=== PATIENT | male | born 1930 | race Caucasian/White ===

== ENCOUNTER 2017-01-14 08:36 | Inpatient (IN) | payer OTHER ==
[~2017-01-14] VITALS: Ht 180.3 cm; Wt 71.5 kg
[~2017-01-14 08:36] MED LIST: /ALEN70TA; /WARF25TA; /WARF5TA; ALDA25TA2; ALDA50TA2; ATEN50TA2; CALA240T; CALAN; CALC500T49; CIPR500T19; COLA100C2; COUMADIN; FURO40TA2; GLAUCOMA MED; LASI20TA; LASI40TA; LIPI10TA; METO25TA2; MIRALEX; MULTIVIT; NITR0.4S; OXYC10TA97; PERC5TAB8; TENO50TA; THERGRAN; TRAVATAN Z; VITAMIN D
--- NOTE | 2017-01-14 09:52 | REP ---
CT Head without contrast HISTORY: Fall COMPARISON: 11/07/2007 Areas of decreased attenuation are present in the periventricular white matter. This represents small vessel ischemic disease. There is no intraparenchymal hemorrhage, acute infarct, mass or midline shift. The ventricular system and cortical sulci are dilated consistent with moderate volume loss. There is no extra cerebral collection. There is no fracture. The visualized sinuses are clear. IMPRESSION: 1. Small vessel ischemic disease. 2. Moderate volume loss. Signed by Ernie Henriquez MD 01/14/2017 09:44 A
--- NOTE | 2017-01-14 09:54 | REP ---
Chest one-view HISTORY: Chest pain Comparison: 08/13/2012 A minimal increase in interstitial markings is present in the lungs consistent with chronic interstitial fibrosis. The cardiac silhouette is enlarged. The pulmonary vasculature is normal in appearance. A cardiac pacemaker is present. Impression: No acute disease. Signed by Ernie Henriquez MD 01/14/2017 09:45 A
[2017-01-14 10:02] LABS: BASO % 0.1 % (0.0-1.0); EOS % 0.3 % (0.0-3.0); LARGE UNSTAINED CELL # 0.1 K/mm3 (0.0-0.4); LARGE UNSTAINED CELL % 0.5 % (0.0-4.0); LYMPH # 0.6 K/mm3 (1.5-4.5); LYMPH % 4.5 % (24.0-44.0); MEAN CORPUSCULAR HEMOGLOBIN 32.6 pg (27.0-33.0); MEAN CORPUSCULAR HGB CONC 33.5 g/dl (32.0-36.5); MEAN CORPUSCULAR VOLUME 97.5 fl (80.0-96.0); MONO # 0.5 K/mm3 (0.0-0.8); MONO % 3.8 % (0.0-5.0); NEUTROPHILS # 11.4 K/mm3 (1.8-7.7); NEUTROPHILS % 90.9 % (36.0-66.0); PLATELET COUNT, AUTOMATED 141 k/mm3 (150-450); RED CELL DISTRIBUTION WIDTH 13.4 % (11.5-14.5); WHITE BLOOD COUNT 12.6 K/mm3 (4.0-10.0)
[2017-01-14] MEDS: NS 1,000 ML IV SCH ×2 (10:04→22:20)
[2017-01-14 10:05] LABS: ANION GAP 7 MEQ/L (8-16); BLOOD UREA NITROGEN 22 MG/DL (7-18); CALCIUM LEVEL 8.6 MG/DL (8.8-10.2); CARBON DIOXIDE LEVEL 27 MEQ/L (21-32); CHLORIDE LEVEL 107 MEQ/L (98-107); CREATININE FOR GFR 0.87 MG/DL (0.70-1.30); GLOMERULAR FILTRATION RATE > 60.0 (>35); GLUCOSE, FASTING 119 MG/DL (83-110); POTASSIUM SERUM 3.9 MEQ/L (3.5-5.1); SODIUM LEVEL 141 MEQ/L (136-145)
[2017-01-14 10:06] LABS: INR 1.22
[2017-01-14] MEDS ORDERED: LATA5OPD OU (10:32)
[2017-01-14] MEDS ORDERED: FLOM5CAP PO (10:32)
[2017-01-14] MEDS ORDERED: METO-207 PO (10:32)
[2017-01-14] MEDS ORDERED: PARO10TA84 PO (10:32)
[2017-01-14] MEDS ORDERED: OMEP20CA3 PO (10:32)
[2017-01-14] MEDS ORDERED: VESI5TAB PO (10:32)
[2017-01-14] MEDS ORDERED: VITA-122 PO (10:32)
[2017-01-14] MEDS ORDERED: CEPH500T PO (10:32)
[2017-01-14] MEDS ORDERED: MYRB25TA PO (10:32)
[2017-01-14] MEDS ORDERED: ELIQ2.5T PO (10:32)
[2017-01-14] MEDS ORDERED: SENN8.6T10 PO (10:32)
[2017-01-14] MEDS ORDERED: URIB118C PO (10:32)
[2017-01-14] MEDS ORDERED: ATOR1TAB19 PO (10:32)
[2017-01-14 10:33] LABS: MICROSCOPIC INDICATED? MAN YES (NO)
[2017-01-14 10:45] LABS: RBC, URINE TNTC /hpf (0-3)
[2017-01-14 10:47] LABS: BACTERIA, URINE SMALL AMOUNT; HYALINE CAST, URINE NONE SEEN /lpf (0-1); MICROSCOPIC EXAM PERFORMED; SQUAMOUS EPITHELIAL CELL URINE SMALL AMOUNT /hpf (SMALL AMT); TRANSITIONAL EPI CELLS, URINE SMALL AMOUNT /hpf
[2017-01-14 15:33] LABS: MAGNESIUM LEVEL 1.5 MG/DL (1.8-2.4)
--- NOTE | 2017-01-14 16:04 | HPEPDOC ---
General Date of Admission 01/14/17 3:52PM Chief Complaint The patient is a 86-year-old male admitted with a reason for visit of weakness; fall injury. Source: Patient, Caregiver Exam Limitations: Hard of hearing Timing/Duration: 4-6 hours Severity: Moderate, Severe Associated Symptoms: Weakness, Mechanical fall History of Present Illness 86 yo male from home, brought in by child care education coordinator after being found on the floor at home. Patient states early this morning around 6am he went to use the toilet , was sitting on the toilet, and slid off due to weakness, landing on the floor. He was unable to get up because of weakness. Roughly one hour later his caregiver arrived and brought him to the hospital. He denies any LOC, SOB, CP, N /V/D, changes in vision, STOVER or seizure activity. Four days ago he underwent bilateral ureteral stent placement for nephrolithiasis. Both the patient and caregiver state that s/p stent placement he has been having some difficulty with walking, weakness and decreased appetite. Patient states he has been intentionally avoiding liquids because of his incontinence. He also admits to dysuria for the last several days. He is scheduled for lithiotripsy on January 27. He was evaluated in [place] for dysphagia, and was recommended a soft food diet. He also admits to not taking his medications correctly. It appears his coumadin was recently switched to Eliquis, which was held prior to his stent placement. Home Medications Scheduled (Paroxetine) 10 Mg Tab, 10 MG PO DAILY, (Reported) (Uribel 118 mg) 1 Cap Cap, 1 CAP PO Q6H, (Reported) Apixaban Base (Eliquis) 2.5 Mg Tab, 2.5 MG PO BID, (Reported) STOPPED TAKING 01/06 DUE TO A PROCEDURE- HAS A RESTART DATE BUT IS UNSURE OF DATE. Atorvastatin Calcium (Atorvastatin Calcium) 10 Mg Tab, 5 MG PO DAILY, (Reported) Cephalexin Monohydrate (Cephalexin) 500 Mg Tab, 500 MG PO Q12H, (Reported) STOPS 01/15 Cholecalciferol (Vitamin D3) 1,000 Unit Tab, 1,000 UNIT PO DAILY, (Reported) Latanoprost (Latanoprost) 50 Drop/2.5 Ml Soln, 1 DROP OU QHS, (Reported) Metoprolol Succinate (Metoprolol Succinate ER) 50 Mg Tab, 50 MG PO DAILY, ( Reported) Mirabegron Base (Myrbetriq) 25 Mg Tab, 25 MG PO QHS, (Reported) Omeprazole (Omeprazole) 20 Mg Cap, 20 MG PO BID, (Reported) Senna (Senna Lax) 8.6 Mg Tab, 1 TAB PO DAILY, (Reported) Solifenacin Succinate (Vesicare) 5 Mg Tab, 5 MG PO DAILY, (Reported) Tamsulosin Hydrochloride (Flomax) 0.4 Mg Cap, 0.4 MG PO QHS, (Reported) Allergies Coded Allergies: Sulfa Drugs (Verified Allergy, Intermediate, SKIN PEELS, 11/20/12) Sulfa Drugs Cross Reactors (Verified Allergy, Intermediate, SKIN PEELS, 11/20/12) Past Medical History Medical History As per caregiver and patient: 1. Afib 2. CAD 3. Aortic valve repair 4. PPM 5. CHF 7. Dysphagia Social History * Smoker: other Review of Symptoms Constitutional: Reports: Weakness, Fatigue, Denies: Chills, Fever, Malaise, Night Sweats, Weight Loss, Lethargy, Other Eyes: Denies: Pain, Vision change, Conjunctivae inflammation, Eyelid inflammation, Redness, Other ENT: Denies: Head Aches, Ear Pain, Dysphagia, Sinus Congestion, Post Nasal Drip , Sore Throat, Epistaxis, Other Symptoms Skin: Denies: Rash, Lesions, Jaundice, Bruising, Itching, Dry, Breakdown, Nail Changes, Other Pulmonary: Denies: Dyspnea, Cough, Pleuritic Chest Pain, Other Symptoms Cardiovascular: Denies: Chest Pain, Palpitations, Orthopnea, Paroxysmal Noc. Dyspnea, Edema, Lt Headedness, Other Symptoms Gastrointestinal: Denies: Nausea, Vomiting, Abdominal Pain, Diarrhea, Constipation, Melena, Hematochezia, Other Symptoms Genitourinary: Reports: Dysuria, Incontinence Musculoskeletal: Reports: Other Symptoms (right flank pain) Neurological: Reports: Weakness, Denies: Numbness, Incoordination, Change in speech, Confusion, Seizures, Other Symptoms Physical Examination General Exam: Positive: Alert, Cooperative, No Acute Distress Eye Exam: Negative: PERRLA, Conjunctiva & lids normal, EOMI, Sclera icteric, Ptosis, Other Eye Symptoms ENT Exam: Positive: Other ENT (poor dentition), Negative: Atraumatic, Mucous membr. moist/pink, Pharynx Normal, Tongue Midline, Pharyngeal Edema, Nares Patent, Tympanic Membranes Normal, Ext Auditory Canal Nml, Pinna Normal Neck Exam: Negative: Supple, JVD, thyromegaly, +2 carotid pulse wo bruit, Lymphadenopathy, Other Chest Exam: Positive: Clear to auscultation, Normal air movement, Negative: Rales, Rhonchi, Wheezing, Diminished, Other Heart Exam: Positive: Rate Normal, Regular Rhythm, Murmurs (systolic murmur) Telemetry: Positive: No significant arrhythmia Abdomen Exam: Positive: Normal bowel sounds, Soft, Tenderness Extremity Exam: Negative: Edema Neuro Exam: Positive: Strength at 5/5 X4 ext Psych Exam: Positive: Oriented x 3 Vital Signs Vital Signs Date Time Temp Pulse Resp B/P (MAP) Pulse Ox O2 Delivery O2 Flow Rate FiO2 01/14/17 15:45 86 93 01/14/17 15:29 182/85 (117) 01/14/17 14:30 18 Nasal Cannula 20.0 01/14/17 08:52 97.3 Laboratory Data Labs 24H Laboratory Tests 2 01/14/17 09:28: White Blood Count 12.6H, Red Blood Count 3.79L, Hemoglobin 12.4L, Hematocrit 37.0L, Mean Corpuscular Volume 97.5H, Mean Corpuscular Hemoglobin 32.6, Mean Corpuscular Hemoglobin Concent 33.5, Red Cell Distribution Width 13.4, Platelet Count 141L, Neutrophils (%) (Auto) 90.9H, Lymphocytes (%) (Auto) 4.5L, Monocytes (%) (Auto) 3.8, Eosinophils (%) (Auto) 0.3, Basophils (%) (Auto) 0.1, Neutrophils # (Auto) 11.4H, Lymphocytes # (Auto) 0.6L, Monocytes # (Auto) 0.5, Eosinophils # (Auto) 0.0, Basophils # (Auto) 0.0, Large Unclassified Cells % 0.5 , Large Unclassified Cells # 0.1, Prothrombin Time 15.5H, Prothromb Time International Ratio 1.22, Anion Gap 7L, Glomerular Filtration Rate > 60.0, Lactic Acid Level 1.3, Blood Urea Nitrogen 22H, Creatinine 0.87, Sodium Level 141, Potassium Level 3.9, Chloride Level 107, Carbon Dioxide Level 27, Calcium Level 8.6L, Total Creatine Kinase 106, Magnesium Level 1.5L, Creatine Kinase MB 1.3, Creatine Kinase MB Relative Index 1.22, Troponin I < 0.02 01/14/17 10:23: Bedside Urine Color (LAB) GREENH, Bedside Urine Appearance (LAB) CLOUDYH, Bedside Urine pH (LAB) 6.0, Bedside Urine Specific [place] (LAB 1.018, Bedside Urine Protein (LAB) 3+H, Bedside Urine Glucose (UA) NEGATIVE, Bedside Urine Ketones (LAB) 1+H, Bedside Urine Blood POSITIVEH, Bedside Urine Nitrite (LAB) OBSCUREDH, Bedside Urine Bilirubin (LAB) OBSCUREDH, Bedside Urine Urobilinogen ( LAB) OBSCUREDH, Bedside Urine Leukocyte Esterase (L POSITIVEH, Urine WBC 10-15H , Urine RBC TNTCH, Urine Squamous Epithelial Cells SMALL AMOUNT, Urine Transitional Epithelial Cells SMALL AMOUNTH, Urine Renal Epithelial Cells SMALL AMOUNTH, Urine Bacteria SMALL AMOUNTH, Urine Hyaline Casts NONE SEEN, Urine Mucus SMALL AMOUNTH, Urine Amorphous Sediment SMALL AMOUNTH, Urine Sediment Examination PERFORMED CBC/BMP Laboratory Tests 01/14/17 09:28 Red Blood Count 3.79 L, Mean Corpuscular Volume 97.5 H, Mean Corpuscular Hemoglobin 32.6, Mean Corpuscular Hemoglobin Concent 33.5, Red Cell Distribution Width 13.4, Neutrophils (%) (Auto) 90.9 H, Lymphocytes (%) (Auto) 4.5 L, Monocytes (%) (Auto) 3.8, Eosinophils (%) (Auto) 0.3, Basophils (%) (Auto ) 0.1, Neutrophils # (Auto) 11.4 H, Lymphocytes # (Auto) 0.6 L, Monocytes # ( Auto) 0.5, Eosinophils # (Auto) 0.0, Basophils # (Auto) 0.0, Calcium Level 8.6 L , Total Creatine Kinase 106 Microbiology Microbiology 01/14/17 Blood Culture, Received Pending 01/14/17 Blood Culture, Received Pending 01/14/17 Urine Culture, Received Pending Problems (1) Fall Status: Acute Response to Treatment: Progressing Discussed With: Patient, Other Discussed With: (caregiver) Problem Specific Plan: Monitor Clinically, Repeat Labs, Repeat Tests Problem Text: Does appear to be secondary to weakness. Patient denies any other associated symptoms. Will monitor on telemetry for possible arrhythmia, he did have a run of VT in the ER - magnesium found to be low which is being repleted. PT/OT evaluation. (2) UTI (urinary tract infection) Status: Acute Response to Treatment: Progressing Discussed With: Welfare Service Aide, Patient Problem Specific Plan: Monitor Clinically, Repeat Labs, Repeat Tests Problem Text: Patient does admit to dysuria. Discussed with urology, no intervention needed - +UA WNL s/p stent placement. Urine cultures pending - IV antibiotics for now. (3) Afib Status: Chronic Discussed With: Patient Problem Text: Discussed resuming anticoagulation with urology, advised that ac should be head 7-10 days before lithiotripsy scheduled for 01/27. Rate controlled and currently in sinus rhythm. BB with hold parameters given low blood pressures. (4) CAD (coronary artery disease) Status: Chronic Discussed With: Patient, Other Discussed With: (5) CHF (congestive heart failure) Status: Chronic Discussed With: Patient, Other Discussed With: Problem Specific Plan: Monitor Clinically (6) Aortic valve disease Status: Chronic Discussed With: Patient, Other Discussed With: Plan / VTE VTE Prophylaxis Ordered?: Yes (eliquis) Plan Diet: Continue Current Activity: Continue Current Therapy: PT, OT Pt and Family Services: Home Care Medications: Change to IV, Start Antibiotics Diagnostics: Repeat Labs in AM, Obtain Cultures Anticipated Discharge: Home, Home With Services MARIO PUGA MD Jan 14, 2017 16:04
[2017-01-14] MEDS: PARoxetine 10MG TABLET PO SCH (16:42)
[2017-01-14] MEDS: METOPROLOL SUCC (TopROL XL) 50MG **XL** TAB PO SCH (16:43)
[2017-01-14] MEDS: PERCOCET 5MG/325MG TAB PO PRN ×2 (16:43→20:31)
[2017-01-14] MEDS ORDERED: ANALGESIC BALM CRM 120 GM TOP ONE (17:00)
--- NOTE | 2017-01-14 18:15 | ECGEPIP ---
Stationary ECG Study [facility] - ED Test Date: 2017-01-14 Pat Name: XIOMY KRAUSE Department: Room: - Gender: M Fermenter: RN : 1930 Requested By: KIT BRAVO Order Number: [id number] Reading MD: Marry Kim Measurements Intervals [place] Rate: 80 P: [place]: 0 QRS: -1 QRSD: 113 T: -36 QT: 385 QTc: 446 Interpretive Statements ATRIAL FIBRILLATION MODERATE INTRAVENTRICULAR CONDUCTION DELAY VOLTAGE CRITERIA FOR LVH ST DEVIATION AND MODERATE T-WAVE ABNORMALITY, CONSIDER LATERAL ISCHEMIA NO PRIOR FOR COMPARISON Electronically Signed On 01-14-2017 18:15:20 EDT by Marry Kim
[2017-01-14] MEDS: cefTRIAXone SOD 1 GM in D5W MINI-BAG PLUS 50 ML IV SCH (18:25)
[2017-01-14] MEDS: URIBEL PO SCH ×2 (18:26→22:42)
[2017-01-14] MEDS ORDERED: MAG SULF 1GM/100ML (MAG RUN) 1 GM in APPROPRIATE DILUENT 1 EA IV ONE (19:00)
[2017-01-14 20:00] VITALS: PULSE 90
[2017-01-14] MEDS ORDERED: APIXABAN 2.5 MG TAB (ELIQUIS) PO SCH (21:00)
[2017-01-14 21:35] VITALS: BP 127/70
[2017-01-14] MEDS: TAMSULOSIN 0.4 MG CAP PO SCH (22:20)
[2017-01-14] MEDS: OMEPRAZOLE 20 MG CAP PO SCH (22:20)
[2017-01-14] MEDS: LATANOPROST 0.005% OPHTH SOLN 2.5 ML OU SCH (22:41)
[2017-01-15] VITALS: BP_SYST 300
[2017-01-15] MEDS: PERCOCET 5MG/325MG TAB PO PRN ×4 (00:40→22:37)
[2017-01-15 04:00] VITALS: BP 123/68
[2017-01-15] MEDS: URIBEL PO SCH ×4 (05:01→23:18)
[2017-01-15 05:18] LABS: BASO % 0.2 % (0.0-1.0); EOS # 0.3 K/mm3 (0.0-0.50); EOS % 2.9 % (0.0-3.0); LARGE UNSTAINED CELL # 0.1 K/mm3 (0.0-0.4); LARGE UNSTAINED CELL % 1.1 % (0.0-4.0); LYMPH # 0.8 K/mm3 (1.5-4.5); LYMPH % 7.2 % (24.0-44.0); MEAN CORPUSCULAR HEMOGLOBIN 34.3 pg (27.0-33.0); MEAN CORPUSCULAR HGB CONC 35.4 g/dl (32.0-36.5); MEAN CORPUSCULAR VOLUME 96.7 fl (80.0-96.0); MONO # 0.5 K/mm3 (0.0-0.8); MONO % 5.1 % (0.0-5.0); NEUTROPHILS # 7.9 K/mm3 (1.8-7.7); NEUTROPHILS % 83.4 % (36.0-66.0); PLATELET COUNT, AUTOMATED 120 k/mm3 (150-450); RED CELL DISTRIBUTION WIDTH 13.9 % (11.5-14.5); WHITE BLOOD COUNT 9.5 K/mm3 (4.0-10.0)
[2017-01-15 05:31] LABS: ANION GAP 6 MEQ/L (8-16); BLOOD UREA NITROGEN 19 MG/DL (7-18); CALCIUM LEVEL 8.1 MG/DL (8.8-10.2); CARBON DIOXIDE LEVEL 25 MEQ/L (21-32); CHLORIDE LEVEL 108 MEQ/L (98-107); CREATININE FOR GFR 0.69 MG/DL (0.70-1.30); GLOMERULAR FILTRATION RATE > 60.0 (>35); GLUCOSE, FASTING 138 MG/DL (83-110); MAGNESIUM LEVEL 1.7 MG/DL (1.8-2.4); POTASSIUM SERUM 3.7 MEQ/L (3.5-5.1); SODIUM LEVEL 139 MEQ/L (136-145)
[2017-01-15] MEDS ORDERED: MAG SULF 1GM/100ML (MAG RUN) 1 GM in APPROPRIATE DILUENT 1 EA IV ONE (07:00)
[2017-01-15 08:00] VITALS: BP 109/66; PULSE 85
--- NOTE | 2017-01-15 08:47 | REP ---
CT ABDOMEN AND PELVIS WITHOUT CONTRAST: HISTORY: Renal stents. COMPARISON: 03/27/2013 Calcifications are present in the gallbladder, consistent with cholelithiasis. The kidneys are irregular in contour, consistent with scarring. Bilateral ureteral stents are present. There is moderate dilatation of the renal collecting systems. The liver, pancreas, spleen, and adrenal glands are normal in appearance. There is no mass, adenopathy, or free fluid. Diverticula are present in the descending and sigmoid colon. A small hiatal hernia is present. Increased density is present in the lower lobes, consistent with bibasilar atelectasis or infiltrates. CT PELVIS: Diverticula are present in the descending and sigmoid colon. Bilateral ureteral stents are present with the distal ends in the urinary bladder. A small amount of air is present in the urinary bladder. The prostate gland is obscured by metal artifact secondary to bilateral total hip replacements. Degenerative change is present in the spine. IMPRESSION: 1. Cholelithiasis. 2. The patient is status post bilateral ureteral stent placement. The stents are normal in position. 3. Bilateral renal scarring. 4. Small hiatal hernia. 5. Bibasilar atelectasis or infiltrates. 6. Diverticulosis. Signed by Ernie Henriquez MD 01/15/2017 08:50 A
[2017-01-15] MEDS ORDERED: SOLIFENACIN 5 MG TAB PO SCH (09:00)
[2017-01-15] MEDS: POTASSIUM CHLORIDE 10 MEQ SR TABLET PO SCH (09:34)
[2017-01-15] MEDS: PARoxetine 10MG TABLET PO SCH (09:34)
[2017-01-15] MEDS: OMEPRAZOLE 20 MG CAP PO SCH ×2 (09:35→20:21)
[2017-01-15] MEDS: VITAMIN D 1,000 INTERNATIONAL UNITS TABLET PO SCH (09:35)
[2017-01-15] MEDS: SENNA 8.6 MG TAB (SENOKOT) PO SCH (09:35)
[2017-01-15] MEDS: MAGNESIUM CHLORIDE 64 MG TABCR (SLO MAG) PO SCH (09:37)
[2017-01-15] MEDS: METOPROLOL SUCC (TopROL XL) 50MG **XL** TAB PO SCH (09:37)
[2017-01-15] MEDS: ATORVASTATIN 5MG PER 1/2 TABLET PO SCH (09:41)
--- NOTE | 2017-01-15 11:53 | IPN ---
DATE: 01/15/2017 Patient seen and examined at bedside. Chart has been reviewed. This morning, patient complains of pain on the right rib, worse when he takes a deep breath and when he touches it. No other issues per nursing. Temperature 98.4, pulse 81, respiratory rate 18, blood pressure 123/68, 97% on 2 liters nasal cannula. Generally, patient is awake, alert, oriented to person and place. Answered questions appropriately. No respiratory distress. Speaks in full sentences. Moist mucous membranes. Tongue is midline. No pharyngeal erythema. Nares are patent. Tympanic membranes normal. NECK: No jugular venous distention. No thyromegaly. 2+ carotid pulse. No bruit. No lymphadenopathy. LUNGS: Are clear to auscultation. No wheezing, rales, or rhonchi. HEART: S1, S2, sinus rhythm. No murmurs, rubs, or gallops. ABDOMEN: Is soft, nontender, nondistended. Positive bowel sounds. EXTREMITIES: Have no pitting edema. LABORATORY DATA: INR is 1.22. White count 9.5, hemoglobin 11, hematocrit 32, platelet count of 120. Sodium 139, potassium 3.7, chloride 108, bicarbonate 25, BUN 18, creatinine 0.69, glucose of 138. Magnesium of 1.7. ASSESSMENT AND PLAN: This is an 86-year-old male with history of coronary artery disease (CAD), aortic valve replacement, PPM, congestive heart failure (CHF), dysplasia, presents to the emergency room after mechanical fall, complains of weakness, landing on the floor. Patient has been having urine incontinence and has been avoiding liquids, admits to some dysuria. Scheduled for lithotripsy January 27. He has also been evaluated in [place] for dysphagia and recommended a soft diet. Currently taking Eliquis for stent placement and atrial fibrillation. CURRENT ISSUES: 1. Fall, secondary to severe weakness. On telemetry for possible arrhythmia. Patient had a run of ventricular tachycardia in the emergency room (ER). Magnesium was low. Continues to be low, 1.7 today. Replete with magnesium intravenously and oral supplementation. Repeat magnesium at a later time. Obtain an echocardiogram. 2. Urinary tract infection. Currently on IV ceftriaxone. Per Dr. Sims's note, he had discussed his case with urology. No intervention at this time. Urinalysis was within normal. Status post stent placement. 3. Chronic atrial fibrillation. Urology had recommended that anticoagulation be held 7-10 days before lithotripsy that is scheduled for 01/27/2017. Currently, sinus rhythm. Beta blockade with holding parameters given patient's low blood pressure, history of coronary artery disease. 4. Chronic congestive heart failure (CHF). Appears to be euvolemic. 5. Aortic valve disease, chronic.
[2017-01-15 12:00] VITALS: BP 117/69; PULSE 84
[2017-01-15 16:00] VITALS: BP 126/74; PULSE 84
--- NOTE | 2017-01-15 16:42 | ECGEPIP ---
Stationary ECG Study [facility] Test Date: 2017-01-15 Pat Name: XIOMY KRAUSE Department: Room: R0638-61 Gender: M Glass Cut Off Tender: MORRO : 1930 Requested By: RUDDY Gold Order Number: [id number] Reading MD: Carmina Amezcua Measurements Intervals [place] Rate: 85 P: [place]: 0 QRS: 10 QRSD: 113 T: -13 QT: 392 QTc: 467 Interpretive Statements ATRIAL FIBRILLATION WITH ABERRANT CONDUCTION OR VENTRICULAR PREMATURE COMPLEXES MODERATE INTRAVENTRICULAR CONDUCTION DELAY MINIMAL VOLTAGE CRITERIA FOR LVH NONSPECIFIC ST & T-WAVE ABNORMALITY ABNORMAL RHYTHM ECG SIMILAR 01/14/17 Electronically Signed On 01-15-2017 16:42:18 EDT by Carmina Amezcua
[2017-01-15] MEDS: cefTRIAXone SOD 1 GM in D5W MINI-BAG PLUS 50 ML IV SCH (18:37)
[2017-01-15 20:00] VITALS: BP 121/75; PULSE 83
[2017-01-15] MEDS: TAMSULOSIN 0.4 MG CAP PO SCH (20:21)
[2017-01-15] MEDS: NS 1,000 ML IV SCH ×2 (20:21→23:00)
[2017-01-15] MEDS: LATANOPROST 0.005% OPHTH SOLN 2.5 ML OU SCH (20:22)
[2017-01-16] VITALS (7 sets, daily range): BP systolic 118–146; BP diastolic 66–103; PULSE 83–84
[2017-01-16 05:39] LABS: BASO % 0.5 % (0.0-1.0); EOS # 0.4 K/mm3 (0.0-0.50); EOS % 4.9 % (0.0-3.0); LARGE UNSTAINED CELL # 0.1 K/mm3 (0.0-0.4); LARGE UNSTAINED CELL % 0.9 % (0.0-4.0); LYMPH % 11.1 % (24.0-44.0); MEAN CORPUSCULAR HEMOGLOBIN 33.2 pg (27.0-33.0); MEAN CORPUSCULAR HGB CONC 33.7 g/dl (32.0-36.5); MEAN CORPUSCULAR VOLUME 98.4 fl (80.0-96.0); MONO # 0.5 K/mm3 (0.0-0.8); MONO % 5.4 % (0.0-5.0); NEUTROPHILS # 6.4 K/mm3 (1.8-7.7); NEUTROPHILS % 77.2 % (36.0-66.0); PLATELET COUNT, AUTOMATED 120 k/mm3 (150-450); RED CELL DISTRIBUTION WIDTH 13.8 % (11.5-14.5); WHITE BLOOD COUNT 8.3 K/mm3 (4.0-10.0)
[2017-01-16] MEDS: URIBEL PO SCH ×4 (05:43→23:49)
[2017-01-16 05:44] LABS: ANION GAP 5 MEQ/L (8-16); BLOOD UREA NITROGEN 17 MG/DL (7-18); CALCIUM LEVEL 8.5 MG/DL (8.8-10.2); CARBON DIOXIDE LEVEL 25 MEQ/L (21-32); CHLORIDE LEVEL 109 MEQ/L (98-107); CREATININE FOR GFR 0.63 MG/DL (0.70-1.30); GLOMERULAR FILTRATION RATE > 60.0 (>35); GLUCOSE, FASTING 113 MG/DL (83-110); MAGNESIUM LEVEL 1.6 MG/DL (1.8-2.4); POTASSIUM SERUM 4.4 MEQ/L (3.5-5.1); SODIUM LEVEL 139 MEQ/L (136-145)
--- NOTE | 2017-01-16 07:31 | ECHO ---
DATE OF PROCEDURE: 01/15/2017 REFERRING PHYSICIAN: Dr. Miranda INDICATION: Nonsustained ventricular tachycardia. Patient measures 180 cm, weighs 71 kg. DIMENSIONS: IVS 1.4 LV 4.9 LVPW 1.3 LA 5.9 Aorta 4.7 FINDINGS: The study is of acceptable technical quality other than near absence of subcostal views. Patient is in probably atrial fibrillation and ventricular paced rhythm based on available tracings. Left ventricle is of normal size and contractility, I estimate ejection fraction (EF) around 65%. Mild left ventricular hypertrophy is present. Right ventricle is severely dilated and hypokinetic. Both atria are severely enlarged, right more than left. Left atrium volume index was 52 mL/sq m. Aortic valve has three cusps. It is heavily calcified, and there is some restriction of leaflet mobility. By 2D imaging assume approximately mild aortic stenosis. There is history of mitral valve surgery. I do not appreciate any distinct mitral repair ring, but there is borderline prolapse of anterior mitral leaflet. Mobility of leaflet is preserved. Tricuspid valve appears normal. Pulmonic valve also appears normal. No pericardial effusion is noted. Inferior vena cava is dilated, and there is no appreciable collapse with respiration indicative very high central venous pressure. 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 Aortic arch and abdominal aorta were not well seen. Doppler interrogation of aortic valve reveals trace insufficiency and mild stenosis. Mean gradient across the valve was 11 mmHg. There is mild to moderate mitral insufficiency and no significant mitral stenosis. There is severe tricuspid insufficiency. Calculated pulmonary artery pressure is at minimum in high 50s that would correspond to moderately severe pulmonary hypertension. Pulmonic valve is functionally competent. CONCLUSIONS: 1. Study is of good technical quality other than poor subcostal views. 2. Normal left ventricular (LV) size with mild LVH and preserved LV systolic function. Unable to estimate diastolic function due to underlying atrial fibrillation. 3. Markedly dilated right-sided chambers. 4. Mild aortic stenosis and trace aortic insufficiency. 5. [id number] mitral insufficiency. 6. Severe tricuspid insufficiency. 7. High central venous pressure. 8. Moderately severe pulmonary hypertension. 9. Pacemaker or defibrillator artifacts noted in right-sided chambers. COMMENT: Subacute bacterial endocarditis (SBE) prophylaxis is not recommended. [facility]
[2017-01-16] MEDS ORDERED: MAG SULF 1GM/100ML (MAG RUN) 1 GM in APPROPRIATE DILUENT 1 EA IV ONE (08:30)
[2017-01-16] MEDS: MAGNESIUM CHLORIDE 64 MG TABCR (SLO MAG) PO SCH (09:05)
[2017-01-16] MEDS: ATORVASTATIN 5MG PER 1/2 TABLET PO SCH (09:06)
[2017-01-16] MEDS: VITAMIN D 1,000 INTERNATIONAL UNITS TABLET PO SCH (09:06)
[2017-01-16] MEDS: SENNA 8.6 MG TAB (SENOKOT) PO SCH (09:06)
[2017-01-16] MEDS: METOPROLOL SUCC (TopROL XL) 50MG **XL** TAB PO SCH (09:06)
[2017-01-16] MEDS: POTASSIUM CHLORIDE 10 MEQ SR TABLET PO SCH (09:06)
[2017-01-16] MEDS: OMEPRAZOLE 20 MG CAP PO SCH ×2 (09:06→20:46)
[2017-01-16] MEDS: PERCOCET 5MG/325MG TAB PO PRN ×2 (11:56→20:49)
--- NOTE | 2017-01-16 13:15 | IPN ---
DATE: 01/16/2017 Patient appears to be increasingly more confused. He does not know where he is and indicates that he wanted to go to the hospital today as he was not feeling well with some nausea, no vomiting. No fever or chills. No chest pain, pressure or tightness, lightheadedness or dizziness. Temperature 98.8, pulse 73, respiratory rate 18, blood pressure 136/66, 94% on 1 liter nasal cannula. Generally, awake, alert, oriented to person only. The patient is much more confused. Lungs: Diminished, but clear to auscultation. No wheezing, rales, or rhonchi. Heart: S1, S2, pacemaker noted left anterior chest. Irregularly irregular. Abdomen: Soft, nontender, nondistended. Positive bowel sounds. Extremities: No cyanosis, clubbing or pitting edema. LABORATORY DATA: White count 8.3, hemoglobin 10, hematocrit 32, platelet count of 120. Sodium 139, potassium 4.4, chloride 109, bicarbonate 25, BUN 15, creatinine 0.6, glucose of 113. Magnesium of 1.6. MICROBIOLOGY: Urine culture with Proteus. Resistant to cefazolin, ampicillin, nitrofurantoin, tigecycline. Sensitive to ceftriaxone and Levaquin. ASSESSMENT AND PLAN: This is an 86-year-old male from home brought in by caregiver after being found on the floor with history of coronary artery disease (CAD), aortic valve replacement, pacemaker, congestive heart failure (CHF), dysphagia, and ejection fraction (EF) of 55% who was having urinary incontinence, avoiding liquids and admits to some dysuria, scheduled for lithotripsy on 01/27/2017 who was evaluated in [place] for dysphagia and recommended a soft diet, currently taking Eliquis for stent and atrial fibrillation. CURRENT ISSUES: 1. Fall secondary to severe weakness. On telemetry for episodes of nonsustained ventricular tachycardia in the emergency room. No episodes of nonsustained V tach while on telemetry. Magnesium was low, which has been supplemented. Echocardiogram is unremarkable, EF of 65%. 2. Urinary tract infection. IV ceftriaxone. With Proteus. Stent placed. May deescalate to oral Levaquin once ready for discharge. 3. Acute delirium. Treat underlying infection. Encourage early ambulation. 4. Atrial fibrillation. Urology recommended anticoagulation be held 7-10 days prior to lithotripsy that is scheduled on 01/27/2017 in [place]. Currently with holding parameters for low blood pressure. 5. History of coronary artery disease and chronic congestive heart failure (CHF). Appears to be euvolemic. 6. Aortic valve disease, chronic.
[2017-01-16] MEDS: cefTRIAXone SOD 1 GM in D5W MINI-BAG PLUS 50 ML IV SCH (17:39)
[2017-01-16] MEDS: PARoxetine 10MG TABLET PO SCH (20:46)
[2017-01-16] MEDS: TAMSULOSIN 0.4 MG CAP PO SCH (20:46)
[2017-01-16] MEDS: LATANOPROST 0.005% OPHTH SOLN 2.5 ML OU SCH (20:48)
[2017-01-17] MEDS: PERCOCET 5MG/325MG TAB PO PRN ×2 (04:23→19:33)
[2017-01-17] MEDS: URIBEL PO SCH ×3 (05:12→18:37)
[2017-01-17 06:00] VITALS: BP 132/77
[2017-01-17 06:53] LABS: WHITE BLOOD COUNT 8.2 K/mm3 (4.0-10.0)
[2017-01-17 06:57] LABS: BASO % 0.3 % (0.0-1.0); EOS # 0.4 K/mm3 (0.0-0.50); EOS % 4.5 % (0.0-3.0); LARGE UNSTAINED CELL # 0.1 K/mm3 (0.0-0.4); LARGE UNSTAINED CELL % 1.4 % (0.0-4.0); LYMPH # 0.9 K/mm3 (1.5-4.5); LYMPH % 10.7 % (24.0-44.0); MEAN CORPUSCULAR HEMOGLOBIN 32.7 pg (27.0-33.0); MEAN CORPUSCULAR HGB CONC 33.5 g/dl (32.0-36.5); MEAN CORPUSCULAR VOLUME 97.5 fl (80.0-96.0); MONO # 0.6 K/mm3 (0.0-0.8); MONO % 7.8 % (0.0-5.0); NEUTROPHILS # 6.2 K/mm3 (1.8-7.7); NEUTROPHILS % 75.3 % (36.0-66.0); PLATELET COUNT, AUTOMATED 137 k/mm3 (150-450); RED CELL DISTRIBUTION WIDTH 13.6 % (11.5-14.5)
[2017-01-17 07:15] LABS: ANION GAP 7 MEQ/L (8-16); BLOOD UREA NITROGEN 15 MG/DL (7-18); CALCIUM LEVEL 8.6 MG/DL (8.8-10.2); CARBON DIOXIDE LEVEL 23 MEQ/L (21-32); CHLORIDE LEVEL 106 MEQ/L (98-107); CREATININE FOR GFR 0.56 MG/DL (0.70-1.30); GLOMERULAR FILTRATION RATE > 60.0 (>35); GLUCOSE, FASTING 117 MG/DL (83-110); POTASSIUM SERUM 4.2 MEQ/L (3.5-5.1); SODIUM LEVEL 136 MEQ/L (136-145)
[2017-01-17] MEDS: guaiFENesin ER 600 MG TAB PO SCH ×2 (09:00→20:42)
--- NOTE | 2017-01-17 09:31 | IPN ---
DATE: 01/17/2017 86-year-old gentleman seen at bedside. No overnight issues reported. His family member is present this morning and questions were answered at bedside as well. He denies any overnight issues. He is tolerating his morning breakfast. He is informing me that he will participate with physical therapy today OBJECTIVE: Temperature 98.3, pulse 66, respiratory rate is 20, blood pressure (BP) 132/77, SPO2 is 98% on 1 liter. General: The patient appears to be in no acute distress. He is alert, pleasant. HEENT: Unremarkable. Lungs: Clear. Heart: Regular rate and rhythm. He does have some palpable tenderness along the right rib cage. The family member was concerned that he may have sustained some fractures from his fall. I did not see anything specific on his chest x-ray or CT of abdomen and pelvis, but will go ahead and do a rib series on the right. Abdomen was unremarkable, soft, nontender, with positive bowel sounds. Extremities: No edema or calf tenderness. LABORATORY DATA: White count 8.2, hemoglobin 10.8, platelets are 137,000. Sodium is 136, potassium 4.2, chloride 106, bicarb 23, anion gap 7, BUN 15, creatinine 0.56, glucose 117. ASSESSMENT/PLAN: 1. Mechanical fall secondary to severe weakness. No issues found on telemetry while in the progressive care unit (PCU). He needs to participate with physical therapy. He does appear to have some poor conditioning issues. He had a 2-D echo which was unremarkable and showed an ejection fraction (EF) of 65%. 2. Urinary tract infection. Will de-escalate to Levaquin starting today. 3. Acute delirium / metabolic encephalopathy in setting of UTI. Will encourage him to ambulate. He does appear to be much more intact today. 4. Atrial fibrillation. He is scheduled for urology followup and it was recommended that he hold anticoagulation 7-10 days prior to lithotripsy. Will continue to hold his anticoagulation. In the meantime, he does appear to be rate controlled. 5. History of coronary artery disease with congestive heart failure. Appears to be euvolemic and compensated. 6. Aortic valve disease, chronic 7. Deep vein thrombosis (DVT) prophylaxis. Thromboembolic deterrent stockings (TEDS) and sequentials. DISPOSITION: The patient does need to participate with physical therapy. He does not appear to be safe for home discharge at this point. Patient and Family Services (PFS) consult was placed as well. My concern is the patient if he is severely deconditioned may need some subacute rehab versus [facility]p placement. Again, I am changing his Rocephin to by mouth Levaquin. Other medications include Lipitor, Slow-Mag, Toprol XL for rate control, omeprazole, as needed Percocet, Paxil, Flomax for benign prostatic hypertrophy (BPH), and vitamin D supplementation. MTDD
[2017-01-17] MEDS: MAGNESIUM CHLORIDE 64 MG TABCR (SLO MAG) PO SCH (10:26)
[2017-01-17] MEDS: METOPROLOL SUCC (TopROL XL) 50MG **XL** TAB PO SCH (10:26)
[2017-01-17] MEDS: POTASSIUM CHLORIDE 10 MEQ SR TABLET PO SCH (10:27)
[2017-01-17] MEDS: VITAMIN D 1,000 INTERNATIONAL UNITS TABLET PO SCH (10:27)
[2017-01-17] MEDS: OMEPRAZOLE 20 MG CAP PO SCH ×2 (10:27→20:42)
[2017-01-17] MEDS: ATORVASTATIN 5MG PER 1/2 TABLET PO SCH (10:27)
[2017-01-17] MEDS: SENNA 8.6 MG TAB (SENOKOT) PO SCH (10:27)
--- NOTE | 2017-01-17 12:14 | REP ---
RIGHT RIB SERIES: Four views. HISTORY: Right rib pain after fall. Comparison chest x-ray January 14, 2017. FINDINGS: Four views of the right ribcage demonstrate discontinuity representing nondisplaced fractures of the lateral segments of the right 5th and 6th ribs. There is also a nondisplaced fracture of the lateral aspect of the right 8th rib visible. No other rib fracture is visualized. There is diffuse osteoporosis. A pacemaker is seen in the right heart and median sternotomy wires are noted. There is no evidence of pneumothorax or hydrothorax on the right. There are degenerative change in the right shoulder. Bilateral double pigtail ureteral stents are noted. There are calcifications of the right upper quadrant of the abdomen likely in the gallbladder. IMPRESSION: 1. Rib fractures involving the lateral segments of the right 5th, 6th, and 8th ribs. 2. No evidence of pneumothorax or hydrothorax. 3. Pacemaker, bilateral ureteral stents, and probable gallstones noted as incidental findings. Signed by Marcus Burgos MD 01/17/2017 02:52 P
[2017-01-17] MEDS: LevoFLOXacin 250 MG TABLET PO SCH (12:42)
[2017-01-17] MEDS ORDERED: IPRATROPIUM 0.5MG/ALBUTEROL 2.5MG INH SOL UD 3ML (DUONEB)(J7620) NEB PRN (13:00)
[2017-01-17 14:00] VITALS: BP 147/69
[2017-01-17 19:45] LABS: MICROSCOPIC INDICATED? MAN YES (NO)
[2017-01-17 19:48] LABS: RBC, URINE TNTC /hpf (0-3); SQUAMOUS EPITHELIAL CELL URINE SMALL AMOUNT /hpf (SMALL AMT); WBC, URINE 20-30 /hpf (0-3)
[2017-01-17 19:49] LABS: BACTERIA, URINE SMALL AMOUNT; HYALINE CAST, URINE NONE SEEN /lpf (0-1); MICROSCOPIC EXAM PERFORMED
[2017-01-17] MEDS: MORPHINE 2 MG/ML 1ML SYRINGE IV PRN (20:39)
[2017-01-17] MEDS: PARoxetine 10MG TABLET PO SCH (20:42)
[2017-01-17] MEDS: TAMSULOSIN 0.4 MG CAP PO SCH (20:42)
[2017-01-17] MEDS: LATANOPROST 0.005% OPHTH SOLN 2.5 ML OU SCH (20:43)
[2017-01-17 22:00] VITALS: BP 129/74
[2017-01-18] MEDS: URIBEL PO SCH ×5 (00:24→23:47)
[2017-01-18] MEDS: MORPHINE 2 MG/ML 1ML SYRINGE IV PRN (04:40)
[2017-01-18] MEDS: LevoFLOXacin 250 MG TABLET PO SCH (05:17)
[2017-01-18 06:00] VITALS: BP 144/77
[2017-01-18 06:44] LABS: BASO % 0.2 % (0.0-1.0); EOS # 0.1 K/mm3 (0.0-0.50); EOS % 1.4 % (0.0-3.0); LARGE UNSTAINED CELL # 0.1 K/mm3 (0.0-0.4); LARGE UNSTAINED CELL % 1.4 % (0.0-4.0); LYMPH # 0.9 K/mm3 (1.5-4.5); LYMPH % 7.6 % (24.0-44.0); MEAN CORPUSCULAR HEMOGLOBIN 32.6 pg (27.0-33.0); MEAN CORPUSCULAR HGB CONC 33.4 g/dl (32.0-36.5); MEAN CORPUSCULAR VOLUME 97.6 fl (80.0-96.0); MONO # 0.8 K/mm3 (0.0-0.8); MONO % 7.3 % (0.0-5.0); NEUTROPHILS # 8.5 K/mm3 (1.8-7.7); NEUTROPHILS % 82.1 % (36.0-66.0); PLATELET COUNT, AUTOMATED 156 k/mm3 (150-450); RED CELL DISTRIBUTION WIDTH 13.8 % (11.5-14.5); WHITE BLOOD COUNT 10.3 K/mm3 (4.0-10.0)
[2017-01-18 06:51] LABS: ANION GAP 6 MEQ/L (8-16); BLOOD UREA NITROGEN 18 MG/DL (7-18); CALCIUM LEVEL 8.7 MG/DL (8.8-10.2); CARBON DIOXIDE LEVEL 27 MEQ/L (21-32); CHLORIDE LEVEL 102 MEQ/L (98-107); CREATININE FOR GFR 0.61 MG/DL (0.70-1.30); GLOMERULAR FILTRATION RATE > 60.0 (>35); GLUCOSE, FASTING 118 MG/DL (83-110); POTASSIUM SERUM 4.8 MEQ/L (3.5-5.1); SODIUM LEVEL 135 MEQ/L (136-145)
[2017-01-18] MEDS: POTASSIUM CHLORIDE 10 MEQ SR TABLET PO SCH ×2 (09:00→09:35)
[2017-01-18] MEDS: ATORVASTATIN 5MG PER 1/2 TABLET PO SCH (09:33)
[2017-01-18] MEDS: guaiFENesin ER 600 MG TAB PO SCH ×2 (09:33→21:13)
[2017-01-18] MEDS: OMEPRAZOLE 20 MG CAP PO SCH ×2 (09:33→21:13)
[2017-01-18] MEDS: VITAMIN D 1,000 INTERNATIONAL UNITS TABLET PO SCH (09:33)
[2017-01-18] MEDS: SENNA 8.6 MG TAB (SENOKOT) PO SCH (09:34)
[2017-01-18] MEDS: METOPROLOL SUCC (TopROL XL) 50MG **XL** TAB PO SCH (09:34)
[2017-01-18] MEDS: PERCOCET 5MG/325MG TAB PO PRN ×2 (09:35→16:30)
[2017-01-18] MEDS: MAGNESIUM CHLORIDE 64 MG TABCR (SLO MAG) PO SCH (09:35)
[2017-01-18] MEDS ORDERED: IPRATROPIUM 0.5MG/ALBUTEROL 2.5MG INH SOL UD 3ML (DUONEB)(J7620) NEB PRN (12:15)
--- NOTE | 2017-01-18 13:00 | IPN ---
DATE: 01/18/2017 86-year-old gentleman seen at bedside. His daughter is present and we did discuss ongoing issues with his deconditioning, as well as rib pain and cough. She did request that we get a swallow evaluation done today since she felt that he was having some difficulty with swallowing. 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 No chest pain. No nausea, vomiting. No fevers, chills. OBJECTIVE: Temperature is 98.4, pulse 92, respiratory rate is 24, blood pressure 144/77, SpO2 is 97% on room air. GENERAL: The patient appears to be in no acute distress. He is alert, pleasant. HEENT: Head is atraumatic, normocephalic. Eyes: Pupils equal, round, and reactive to light and accommodation. Throat clear. LUNGS: Diminished bibasilar breath sounds. He does have an occasional wheeze that clears with cough. HEART: Regular rhythm. ABDOMEN: Soft. EXTREMITIES: No edema. No calf tenderness. LABORATORY DATA: White count is 10.3, hemoglobin 11.0, platelets 156. Sodium is 135, potassium 4.8, chloride 102, bicarbonate 27, anion gap 6, BUN 18, creatinine 0.61. ASSESSMENT AND PLAN: 1. Status post mechanical fall with right rib fractures. We will encourage ambulation with assistance and physical therapy. Does have an incentive spirometer and will start DuoNebs every 6, as well as every 2 hours as needed. with the EZ-PAP. He had a 2-D echo that was performed previously that was unremarkable with the left ventricular ejection fraction of 65%. 2. Deconditioning. As outlined above, he will need ongoing physical therapy and likely will need placement for subacute rehabilitation. 3. Urinary tract infection, de-escalated antibiotics to Levaquin for another 7 days. 4. Acute delirium superimposed with metabolic encephalopathy in the setting of urinary tract infection. Does appear to be much more intact with his mentation today. 5. Atrial fibrillation. Currently holding his anticoagulation therapy. Anticipate lithotripsy in the next 10 days or so. He is supposed to followup outpatient on the th of this month for preop evaluation. We are moving him towards discharge and we will see if we can coordinate this with his urologist. 6. Prior history of Zenker diverticulum. We will do a speech and see how he does with that and we will likely need to discuss it further with ENT for further recommendations. 7. History of coronary artery disease. No current issues. 8. Prior history of congestive heart failure. He appears to be euvolemic and compensated. 9. Aortic valve disease, chronic and stable. 10. Deep vein thrombosis (DVT) prophylaxis with TEDs and sequential compression device (SCD). DISPOSITION: He will continue to participate with physical therapy. As outlined above, we are adding on DuoNebs with EZ-PAP, and I will get further evaluation regarding his prior history of Zenker diverticulum.
--- NOTE | 2017-01-18 13:43 | REP ---
CHEST X-RAY: Two views. HISTORY: Shortness of breath. Comparison chest x-rays from January 14, 2017. FINDINGS: The patient is rotated somewhat to the left for the current exposure. A unipolar pacemaker is seen in the right heart via the left side as before. Median sternotomy wires are noted. Moderate to marked cardiomegaly is again noted. No focal infiltrate is appreciated. There is a fracture involving the anterior end of the right 6th and probably 5th ribs. There is no evidence of pneumothorax or hydrothorax. IMPRESSION: Cardiomegaly with pacemaker again noted. Anterior rib fractures noted on the right. No pneumothorax is seen. No infiltrate noted. Signed by Marcus Burgos MD 01/18/2017 02:07 P
[2017-01-18 14:00] VITALS: BP 137/82
[2017-01-18] MEDS: IPRATROPIUM 0.5MG/ALBUTEROL 2.5MG INH SOL UD 3ML (DUONEB)(J7620) NEB SCH ×2 (14:05→19:09)
[2017-01-18] MEDS: TAMSULOSIN 0.4 MG CAP PO SCH (21:13)
[2017-01-18] MEDS: PARoxetine 10MG TABLET PO SCH (21:13)
[2017-01-18] MEDS: LATANOPROST 0.005% OPHTH SOLN 2.5 ML OU SCH (21:13)
[2017-01-18 22:00] VITALS: BP 138/80
[2017-01-19] MEDS: PERCOCET 5MG/325MG TAB PO PRN ×3 (00:05→22:19)
[2017-01-19] MEDS: MORPHINE 2 MG/ML 1ML SYRINGE IV PRN ×2 (01:15→14:03)
[2017-01-19] MEDS: IPRATROPIUM 0.5MG/ALBUTEROL 2.5MG INH SOL UD 3ML (DUONEB)(J7620) NEB SCH ×4 (02:29→20:00)
[2017-01-19] MEDS: LevoFLOXacin 250 MG TABLET PO SCH (05:09)
[2017-01-19] MEDS: URIBEL PO SCH (05:10)
[2017-01-19 06:00] VITALS: BP 118/74
[2017-01-19 06:48] LABS: BASO % 0.4 % (0.0-1.0); EOS # 0.2 K/mm3 (0.0-0.50); EOS % 2.4 % (0.0-3.0); LARGE UNSTAINED CELL # 0.1 K/mm3 (0.0-0.4); LARGE UNSTAINED CELL % 1.6 % (0.0-4.0); LYMPH # 1.1 K/mm3 (1.5-4.5); LYMPH % 10.8 % (24.0-44.0); MEAN CORPUSCULAR HEMOGLOBIN 32.9 pg (27.0-33.0); MEAN CORPUSCULAR VOLUME 96.9 fl (80.0-96.0); MONO # 0.5 K/mm3 (0.0-0.8); MONO % 5.6 % (0.0-5.0); NEUTROPHILS # 7.1 K/mm3 (1.8-7.7); NEUTROPHILS % 79.2 % (36.0-66.0); PLATELET COUNT, AUTOMATED 160 k/mm3 (150-450); RED CELL DISTRIBUTION WIDTH 13.8 % (11.5-14.5)
[2017-01-19 07:02] LABS: ANION GAP 7 MEQ/L (8-16); BLOOD UREA NITROGEN 18 MG/DL (7-18); CALCIUM LEVEL 8.4 MG/DL (8.8-10.2); CARBON DIOXIDE LEVEL 27 MEQ/L (21-32); CHLORIDE LEVEL 103 MEQ/L (98-107); CREATININE FOR GFR 0.63 MG/DL (0.70-1.30); GLOMERULAR FILTRATION RATE > 60.0 (>35); GLUCOSE, FASTING 115 MG/DL (83-110); POTASSIUM SERUM 4.4 MEQ/L (3.5-5.1); SODIUM LEVEL 137 MEQ/L (136-145)
[2017-01-19 09:00] VITALS: BP 118/74
[2017-01-19] MEDS: PHENAZOPYRIDINE 100 MG TAB PO SCH ×3 (09:00→21:02)
[2017-01-19] MEDS: METOPROLOL SUCC (TopROL XL) 50MG **XL** TAB PO SCH (09:00)
[2017-01-19] MEDS: guaiFENesin ER 600 MG TAB PO SCH ×2 (09:40→21:02)
[2017-01-19] MEDS: ATORVASTATIN 5MG PER 1/2 TABLET PO SCH (09:40)
[2017-01-19] MEDS: MAGNESIUM CHLORIDE 64 MG TABCR (SLO MAG) PO SCH (09:40)
[2017-01-19] MEDS: SENNA 8.6 MG TAB (SENOKOT) PO SCH (09:40)
[2017-01-19] MEDS: VITAMIN D 1,000 INTERNATIONAL UNITS TABLET PO SCH (09:40)
[2017-01-19] MEDS: OMEPRAZOLE 20 MG CAP PO SCH ×2 (09:40→21:02)
--- NOTE | 2017-01-19 11:21 | IPN ---
DATE: 01/19/2017 Patient seen at bedside. Family is present. No overnight issues reported. He does have some superficial irritation noted of the upper lip just below the nasal labia. No fever reported. No chest pain. No nausea or vomiting. We did have a discussion regarding the patient having a previously diagnosed Zenker diverticulum and perhaps modifying his diet. OBJECTIVE: Temperature is 98.2, pulse 91, respiratory rate is 22, blood pressure 118/74, SPO2 is 94% on room air. He is alert, pleasant. HEENT: Atraumatic, normocephalic. Eyes: Pupils equal, round, and reactive to light and accommodation. Throat clear. The upper lip just below the nasal fold does demonstrate some vague erythema. No definitive signs of abrasion or rupture and we will treat this with some bacitracin. LUNGS: Clear. HEART: Regular rate and rhythm. ABDOMEN: Soft. EXTREMITIES: No edema. No calf tenderness. LABORATORY DATA White count 9.0, hemoglobin 10.1, and platelets are 160,000. Sodium 137, potassium 4.4, chloride 103, bicarbonate 27, anion gap 7, BUN is 18, creatinine 0.63, glucose is 115. Again his urine culture was positive for Proteus. Blood cultures unremarkable. ASSESSMENT AND PLAN: 1. Status post mechanical fall with right rib fractures. Encourage ambulation assistance with physical therapy. Continue incentive spirometer, DuoNebs as needed with EZ-PAP. 2-D echo was performed previously and was mainly unremarkable with left ventricular ejection fraction of 65%. 2. Deconditioning. The patient will need ongoing physical therapy. He has been looked at for subacute rehab and anticipate discharge tomorrow. 3. Urinary tract infection. We did de-escalate to oral antibiotics. He is currently on Levaquin and will need another 5-6 days worth. 4. Acute delirium superimposed on metabolic encephalopathy in the setting of urinary tract infection. Clinically, he does appear to be improving. 5. Atrial fibrillation, anticoagulation therapy is on hold. He is anticipated for a lithotripsy in the next 10 days or so and is planned on being discharged to the facility for subacute rehabilitation where he will have the lithotripsy planned. 6. Lithotripsy planned for renal calculi. He is to be transferred to the facility tomorrow for subacute rehab and the treating urologist is aware that he will be in house for that procedure next week. 7. History of Zenker diverticulum. We will modify his diet to nectar thickened with pureed diet. I did speak the ENT. They did not feel there was any emergent need for him to have any surgical procedure at this time. Try to modify his diet. We will have speech therapy see him perhaps today if we can get that worked out, but at any rate we will go ahead and modify his diet as outlined. 8. History of coronary artery disease. No current issues. 9. Prior history of congestive heart failure, appears to be euvolemic and compensated. 10. Aortic valve disease, chronic and stable. 11. Deep vein thrombosis (DVT) prophylaxis. TEDs, sequential. Encouraged to p[participate with physical therapy. Holding on any anticoagulation therapy due to upcoming lithotripsy procedure. DISPOSITION: Anticipate discharge to subacute rehabilitation tomorrow.
[2017-01-19] MEDS ORDERED: PERCOCET PO (12:39)
[2017-01-19] MEDS ORDERED: LEVA250T PO (12:39)
[2017-01-19 14:00] VITALS: BP 135/66
[2017-01-19] MEDS: TAMSULOSIN 0.4 MG CAP PO SCH (21:02)
[2017-01-19] MEDS: PARoxetine 10MG TABLET PO SCH (21:02)
[2017-01-19] MEDS: LATANOPROST 0.005% OPHTH SOLN 2.5 ML OU SCH (21:02)
[2017-01-19 22:00] VITALS: BP 124/90
[2017-01-20] MEDS: IPRATROPIUM 0.5MG/ALBUTEROL 2.5MG INH SOL UD 3ML (DUONEB)(J7620) NEB SCH (01:50)
[2017-01-20] MEDS: PERCOCET 5MG/325MG TAB PO PRN (02:59)
[2017-01-20 06:00] VITALS: BP 120/75
[2017-01-20] MEDS: LevoFLOXacin 250 MG TABLET PO SCH (06:28)
[2017-01-20 06:50] LABS: BASO % 0.4 % (0.0-1.0); EOS # 0.3 K/mm3 (0.0-0.50); EOS % 4.3 % (0.0-3.0); LARGE UNSTAINED CELL # 0.1 K/mm3 (0.0-0.4); LARGE UNSTAINED CELL % 1.8 % (0.0-4.0); LYMPH % 10.5 % (24.0-44.0); MEAN CORPUSCULAR HEMOGLOBIN 32.8 pg (27.0-33.0); MEAN CORPUSCULAR HGB CONC 33.3 g/dl (32.0-36.5); MEAN CORPUSCULAR VOLUME 98.7 fl (80.0-96.0); MONO # 0.6 K/mm3 (0.0-0.8); PLATELET COUNT, AUTOMATED 178 k/mm3 (150-450); RED CELL DISTRIBUTION WIDTH 14.1 % (11.5-14.5); WHITE BLOOD COUNT 7.9 K/mm3 (4.0-10.0)
[2017-01-20 06:54] LABS: ANION GAP 5 MEQ/L (8-16); BLOOD UREA NITROGEN 16 MG/DL (7-18); CALCIUM LEVEL 8.7 MG/DL (8.8-10.2); CARBON DIOXIDE LEVEL 26 MEQ/L (21-32); CHLORIDE LEVEL 105 MEQ/L (98-107); CREATININE FOR GFR 0.55 MG/DL (0.70-1.30); GLOMERULAR FILTRATION RATE > 60.0 (>35); GLUCOSE, FASTING 96 MG/DL (83-110); POTASSIUM SERUM 4.4 MEQ/L (3.5-5.1); SODIUM LEVEL 136 MEQ/L (136-145)
[2017-01-20] MEDS ORDERED: LEVA250T PO (07:02)
[2017-01-20] MEDS ORDERED: PERCOCET PO (07:02)
--- NOTE | 2017-01-20 09:52 | DSES ---
DATE OF ADMISSION: DATE OF DISCHARGE: 01/20/2017 PRIMARY CARE PROVIDER: None listed. CONSULTATIONS: None. PROCEDURES PERFORMED: None. COMPLICATIONS: None. ADMISSION/DISCHARGE DIAGNOSES: 1. Status post mechanical fall with right rib fractures doing well at this point. 2. Deconditioning, which will require ongoing physical therapy. 3. Previous urinary tract infection which does appear to be clearing will finish another few more days of Levaquin. 4. Schedule lithotripsy for this coming week for renal calculi 5. Acute delirium superimposed on metabolic encephalopathy in the setting of urinary tract infection resolved. 6. Atrial fibrillation, anticoagulation currently on hold due to plan lithotripsy next week. He is rate controlled. 7. History of Zenker's diverticulum. Modified diet to nectar thickened pureed diet. 8. Coronary artery disease. No current issues. 9. History of congestive heart failure. He appears to euvolemic. 10. Aortic valve disease, chronic and stable. BRIEF HOSPITAL COURSE: Mr. Holcomb is a pleasant 86-year-old gentleman who presented to the emergency department on 01/14/2017 status post mechanical fall with right rib fractures and some pain, which is better controlled at this point. He is participating with physical therapy but he does have some significant deconditioning for which he will need placement since he does not have any family to look after him at home and will need ongoing therapy. Today he appears to be doing well and appropriate for discharge. For further information regarding intake physical, labs and diagnostics, please refer to the history of present illness. PHYSICAL EXAMINATION: Temperature is 98, pulse 96, respiratory rate 21, blood pressure 120/75, SPO2 is 91% on room air. General: The patient appears to be in no acute distress, alert and oriented. HEENT: Unremarkable. Lungs: Clear. Heart: Regular rate and rhythm. Abdomen: Soft. Extremities: No edema or calf tenderness. LABORATORY DATA: White count 7.9, hemoglobin 10.1, platelets 178. Sodium 136, potassium 4.4, chloride 105, bicarb 26, anion gap 5, BUN is 16, creatinine 0.55, glucose 96. Discharge condition is good. DISPOSITION: The patient will be discharged to a custodial close to [place], [place]. DISCHARGE MEDICATIONS: - Levaquin 250 mg daily for seven more days - Percocet 1 tablet every 4 hours as needed pain - Lipitor 5 mg daily - vitamin D 3000 units daily - latanoprost eye drops 1 drop each eye nightly. - metoprolol succinate 50 mg daily - Myrbetriq 25 mg nightly. - omeprazole 20 mg twice a day - paroxetine 10 mg daily - senna 1 tablet daily - Vesicare 5 mg daily - Flomax 0.4 mg nightly. - Uribel 118 mg every 6 hours currently on hold Currently on hold is his Eliquis 2.5 mg twice a day until after his lithotripsy procedure. DISCHARGE INSTRUCTIONS: Discharged to custodial next to [facility]. We will need to establish with primary care provider and followup with urologist next week. Activity as tolerated. [place] thickened pureed diet and if he continues to have problems with swallowing, he may need an ENT evaluation. I did discuss with our ENT while he was here regarding the issue with the Zenker diverticulum. If he is able to tolerate diet modifications that he should be given a trial of this first before considering proceeding with more invasive procedures were feeding tube placement. His caregiver was here at the time yesterday when I discussed this with them and they were agreeable to this course of action Discharge took 35 minutes.
== END 2017-01-20 07:38 | DRG 183 ==
LOC: EDBD 08:36 → M ED 09:38 → EDBEDREQ 13:22 → M ED INP 15:51 → M PCU 21:32 → M MSPAV 01-16 09:41
PROVIDERS: ADMIT Internal Medicine; ATTEND Hospitalist
DX: S22.41XA Multiple fractures of ribs, right side, initial encounter for closed fracture (principal); G93.41 Metabolic encephalopathy; I47.2 Ventricular tachycardia; N39.0 Urinary tract infection, site not specified; K22.5 Diverticulum of esophagus, acquired; R53.1 Weakness; N20.0 Calculus of kidney; I48.91 Unspecified atrial fibrillation; Z79.899 Other long term (current) drug therapy; Z79.01 Long term (current) use of anticoagulants; W01.0XXA Fall on same level from slipping, tripping and stumbling without subsequent striking against object, initial encounter; Y92.002 Bathroom of unspecified non-institutional (private) residence as the place of occurrence of the external cause; Y93.E8 Activity, other personal hygiene; Y99.9 Unspecified external cause status; Z96.0 Presence of urogenital implants; Z88.2 Allergy status to sulfonamides; Z95.2 Presence of prosthetic heart valve